=== PATIENT | male | born 1945 | race African-American/Black ===

== ENCOUNTER 2021-12-27 10:26 | Emergency (ER) | payer MEDICARE, OTHER ==
[~2021-12-27] VITALS: Ht 182.9 cm; Wt 117.9 kg
== END 2021-12-27 10:45 | disposition expired ==
LOC: ER 10:30
DX: I46.9 Cardiac arrest, cause unspecified (principal); I10 Essential (primary) hypertension; E11.9 Type 2 diabetes mellitus without complications; E78.5 Hyperlipidemia, unspecified; I50.9 Heart failure, unspecified; I48.91 Unspecified atrial fibrillation; E03.9 Hypothyroidism, unspecified
CPT/HCPCS: 92950; 94799; 99284